=== PATIENT | male | born 1960 | race Caucasian/White ===

== ENCOUNTER 2022-07-24 14:34 | Inpatient (IN) | payer MEDICARE, OTHER ==
[~2022-07-24] VITALS: Ht 165.1 cm; Wt 63.5 kg
[2022-07-24] MEDS ORDERED: IV NS 0.9% 500 ML BAG IV ONE (15:00)
--- NOTE | 2022-07-24 15:09 | NUR ---
DEJA FROM [facility] FOR FAILURE TO THRIVE X 3 DAYS. AOX1. QUADRAPLEGIC. TRANSFERRED PT TO BED, CONNECTED PT TO MONITOR. VITAL SIGNS STABLE. AWAITING MD MONZON
--- NOTE | 2022-07-24 15:11 | NUR ---
IV SITE 20G LEFT FOREARM. BLOOD DRAWN AND SENT TO LAB.
--- NOTE | 2022-07-24 15:32 | NUR ---
URINE SAMPLE COLLECTED AND SENT TO LAB.
[2022-07-24 15:34] LABS: BASOPHILS % (AUTO) 0.4 % (0.0-2.0); EOSINOPHILS % (AUTO) 11.4 % (0.0-6.0); HEMATOCRIT 40 % (39-51); HEMOGLOBIN 13.7 g/dL (13.5-17.5); LYMPHOCYTES # (AUTO) 1.1 K/uL (0.8-4.8); LYMPHOCYTES % (AUTO) 20.6 % (20.0-44.0); MEAN CORPUSCULAR HGB CONC 34 g/dl (31.0-36.0); MEAN CORPUSCULAR VOLUME 85 fL (80-96); MONOCYTES # (AUTO) 0.3 K/uL (0.1-1.30); MONOCYTES % (AUTO) 5.5 % (2.0-12.0); NEUTROPHILS # (AUTO) 3.3 K/uL (1.8-8.9); NEUTROPHILS % (AUTO) 62.1 % (43.0-81.0); PLATELET COUNT (AUTO) 209 K/uL (150-450); RED BLOOD CELL COUNT(AUTO) 4.76 MIL/uL (4.5-6.0); WHITE BLOOD COUNT (AUTO) 5.2 K/uL (4.3-11.0)
[2022-07-24] MEDS ORDERED: ASPI-1169 PO (15:40)
[2022-07-24] MEDS ORDERED: ATOR10TA PO (15:40)
[2022-07-24] MEDS ORDERED: METF-440 PO (15:40)
[2022-07-24] MEDS ORDERED: ACET-868 PO (15:40)
[2022-07-24] MEDS ORDERED: BISA10SU11 RC (15:40)
[2022-07-24] MEDS ORDERED: SENN-261 PO (15:40)
[2022-07-24] MEDS ORDERED: MULT-24 PO (15:40)
[2022-07-24] MEDS ORDERED: CHOL100043 PO (15:40)
[2022-07-24] MEDS ORDERED: SODI1TAB66 PO (15:40)
[2022-07-24] MEDS ORDERED: MAGN400O6 PO (15:40)
[2022-07-24] MEDS ORDERED: NA P133E RC (15:40)
[2022-07-24] MEDS ORDERED: LISI10TA29 PO (15:40)
[2022-07-24] MEDS ORDERED: DOCU-141 PO (15:40)
[2022-07-24 15:57] LABS: CALCIUM, SERUM 9.6 mg/dL (8.5-10.1); CARBON DIOXIDE 27 mmol/L (21-32); CHLORIDE 100 mmol/L (98-107); CREATININE 0.8 mg/dL (0.6-1.3); GLUCOSE 99 mg/dL (74-106); POTASSIUM 4.2 mmol/L (3.5-5.1); SODIUM SERUM 134 mmol/L (136-145); UREA NITROGEN, BLOOD 12 mg/dL (7-18)
[2022-07-24 16:03] LABS: ALANINE AMINOTRANSFERASE 25 U/L (12-78); ALBUMIN 3.6 g/dL (3.4-5.0); ALKALINE PHOSPHATASE 86 U/L (46-116); ASPARTATE AMINOTRANSFERASE 14 U/L (15-37); BILIRUBIN,DIRECT 0.1 mg/dL (0.0-0.2); BILIRUBIN,TOTAL 0.2 mg/dL (0.2-1.0)
[2022-07-24] MEDS ORDERED: INSULIN REGULAR, HUMAN 100 UNIT/ML 3 ML VIAL SQ PRN (16:30)
[2022-07-24] MEDS ORDERED: DEXTROSE 50%-WATER 50 ML DISP.SYRIN IV PRN (16:30)
[2022-07-24] MEDS ORDERED: BISACODYL SUPP (10 MG) 10 MG/SUPP.RECT SUPP.RECT RC PRN (16:30)
[2022-07-24] MEDS ORDERED: NA PHOS,M-B/NA PHOS,DI-BA 1 EA ENEMA RC PRN (16:30)
[2022-07-24] MEDS ORDERED: ACETAMINOPHEN 325 MG TABLET PO PRN ×4 (16:30)
[2022-07-24] MEDS ORDERED: Z GUARD REMEDY 4 OZ OINT TP PRN (16:30)
[2022-07-24] MEDS ORDERED: MAG HYDROX/AL HYDROX/SIMETH 30 ML UDC PO PRN (16:30)
[2022-07-24] MEDS ORDERED: ONDANSETRON HCL/PF 4 MG/2 ML VIAL IVP PRN (16:30)
[2022-07-24] MEDS ORDERED: MAGNESIUM HYDROXIDE 30 ML UDC PO PRN ×2 (16:30)
[2022-07-24 17:08] LABS: BILIRUBIN,URINE NEGATIVE (NEGATIVE); COLOR,URINE YELLOW (YELLOW); LEUKOCYTE ESTERASE ,URINE NEGATIVE (NEGATIVE); NITRITE, URINE NEGATIVE (NEGATIVE); PROTEIN,URINE NEGATIVE (NEGATIVE); UGLUCOSE NEGATIVE (NEGATIVE); UROBILINOGEN,URINE 0.2 EU/dL (0.2)
--- NOTE | 2022-07-24 17:10 | NUR ---
COVID SWAB COLLECTED AND SENT TO LAB
--- NOTE | 2022-07-24 17:57 | NUR ---
MOVE SHEET SUBMITTED.
--- NOTE | 2022-07-24 17:58 | NUR ---
GOT BED 118-1 ADMITTING INFORMED.
--- NOTE | 2022-07-24 18:38 | NUR ---
REPORT GIVEN TO COLLEEN FLEMING.
--- NOTE | 2022-07-24 18:39 | NUR ---
RN NOTE RECEIVED REPORT FROM ANTHONY Anderson RN AT THIS TIME FROM ED. PATIENT WILL BE IN ROOM 118 BED 1. WILL ENDORSE CONTINUITY OF CARE TO HARDWARE TRAINER.
--- NOTE | 2022-07-24 18:50 | NUR ---
SADDLE STITCH OPERATOR NOTE TOOK VITALS AT THIS TIME: BP: 98/63 ON RA. RR:20. BREATHING ON ROOM AIR WITH O2 SAT OF 95%. ORAL TEMP 98.7 F. HR: 62. HOB ELEVATE. PATIENT UNDERSTANDS [place]. PATIENT IS A0X1, ABLE TO FOLLOW COMMANDS IN SW[place]ISH. ALL SAFETY MEASURE IN PLACE, SKIN IN TACT. WILL ENDORSE CONTINUITY OF CARE TO LINER HELPER.
--- NOTE | 2022-07-24 19:20 | NUR ---
RN NOTE RECEIVED PT IN BED, ALERT, AWAKE AND ORIENTED TO SELF ONLY. PT ABLE TO FOLLOW SIMPLE COMMANDS, ABLE TO UNDERSTAND SIMPLE [place]. DENIES PAIN OR DISCOMFORT AT THIS TIME. AFEBRILE. PT ON ROOM AIR, WELL SUSU. RESPIRATIONS EVEN AND UNLABORED, NO ACUTE RESP DISTRESS NOTED. PIV ON RFA #20G, CLEAN, DRY AND PATENT, FLUSHES WELL. HOB ELEVATED. SAFETY PRECAUTION IMPLEMENTED, CALL LIGHT WITHIN EASY REACH, BED LOCKED AND IN LOWEST POSITION. WILL CONTINUE POC.
[2022-07-24 20:00] VITALS: BP 104/68
[2022-07-24] MEDS: IV NS 0.9% 1,000 ML IV PRN (20:17)
[2022-07-24] MEDS: DOCUSATE SODIUM 100 MG CAPSULE PO SCH (21:31)
[2022-07-24] MEDS: SENNOSIDES 8.6 MG TABLET PO SCH (21:31)
[2022-07-24] MEDS: BLOOD SUGAR DIAGNOSTIC 1 EACH STRIP VI SCH (21:32)
[2022-07-24] MEDS: *INSULIN REGULAR(HUMULIN R)HUM 100 UNIT/ML VIAL SQ PRN (21:33)
[2022-07-25 04:00] VITALS: BP 133/80
--- NOTE | 2022-07-25 06:50 | NUR ---
RN NOTE PT IN STABLE CONDITION. NO SIGNIFICANT CHANGES NOTED. REMAINS ON ROOM AIR, O2 SAT 97%, NO SOB, NO ACUTE RESP DISTRESS. NO C/O PAIN/DISCOMFORT NOTED. PIV ACCESS ON LFA CURRENTLY INFUSING NS AT 75ML/HR ORDERED, WELL TOLERATED. ALL DUE MEDS GIVEN ORDERED. ALL NEEDS ANTICIPATED. KEPT PT CLEAN, DRY AND COMFORTABLE AT ALL TIMES. WILL ENDORSE TO AM SHIFT NURSE FOR NEPTALI.
[2022-07-25 07:11] LABS: BASOPHILS % (AUTO) 0.2 % (0.0-2.0); EOSINOPHILS % (AUTO) 12.2 % (0.0-6.0); HEMATOCRIT 39 % (39-51); HEMOGLOBIN 13.4 g/dL (13.5-17.5); LYMPHOCYTES # (AUTO) 1.2 K/uL (0.8-4.8); LYMPHOCYTES % (AUTO) 24.6 % (20.0-44.0); MEAN CORPUSCULAR HGB CONC 34 g/dl (31.0-36.0); MEAN CORPUSCULAR VOLUME 85 fL (80-96); MONOCYTES # (AUTO) 0.3 K/uL (0.1-1.30); MONOCYTES % (AUTO) 5.4 % (2.0-12.0); NEUTROPHILS # (AUTO) 2.8 K/uL (1.8-8.9); NEUTROPHILS % (AUTO) 57.6 % (43.0-81.0); PLATELET COUNT (AUTO) 169 K/uL (150-450); RED BLOOD CELL COUNT(AUTO) 4.63 MIL/uL (4.5-6.0); WHITE BLOOD COUNT (AUTO) 4.9 K/uL (4.3-11.0)
[2022-07-25 07:43] LABS: CALCIUM, SERUM 8.7 mg/dL (8.5-10.1); CREATININE 0.6 mg/dL (0.6-1.3); MAGNESIUM 1.9 mg/dL (1.8-2.4); PHOSPHORUS 3.1 mg/dL (2.5-4.9); POTASSIUM 3.8 mmol/L (3.5-5.1)
[2022-07-25 08:00] VITALS: BP 127/78
[2022-07-25] MEDS: BLOOD SUGAR DIAGNOSTIC 1 EACH STRIP VI SCH ×4 (08:05→22:29)
--- NOTE | 2022-07-25 08:10 | NUR ---
RN OPENING NOTE RECEIVED PT IN BED, ALERT, AWAKE AND ORIENTED TO SELF ONLY. PT ABLE TO FOLLOW SIMPLE COMMANDS, ABLE TO UNDERSTAND SIMPLE [place]. DENIES PAIN OR DISCOMFORT AT THIS TIME. PT ON ROOM AIR, WELL SUSU. RESPIRATIONS EVEN AND UNLABORED, NO ACUTE RESP DISTRESS NOTED. PIV ON RFA #20G, CLEAN, DRY AND PATENT, FLUSHES WELL. HOB ELEVATED. SAFETY PRECAUTION IMPLEMENTED, CALL LIGHT WITHIN EASY REACH, BED LOCKED AND IN LOWEST POSITION.BED ALARM ON
[2022-07-25] MEDS: DOCUSATE SODIUM 100 MG CAPSULE PO SCH ×2 (08:24→16:28)
[2022-07-25] MEDS: ASPIRIN 81 MG TAB.CHEW PO SCH (08:24)
[2022-07-25] MEDS: SODIUM CHLORIDE 1000 MG TABLET PO SCH (08:24)
[2022-07-25] MEDS: ATORVASTATIN 10 MG TABLET PO SCH (08:24)
[2022-07-25] MEDS: LISINOPRIL (20MG) 20 MG TABLET PO SCH (08:39)
[2022-07-25] MEDS ORDERED: LISINOPRIL (10MG) 10 MG TABLET PO SCH (09:00)
[2022-07-25] MEDS: IV NS 0.9% 1,000 ML IV PRN ×2 (09:54→23:21)
[2022-07-25 12:00] VITALS: BP 118/83
--- NOTE | 2022-07-25 19:16 | NUR ---
118-1 RN CLOSING NOTE PT IN BED, ALERT, AWAKE AND ORIENTED TO SELF ONLY. PT ABLE TO FOLLOW SIMPLE COMMANDS, ABLE TO UNDERSTAND SIMPLE DANISH. NODS HEAD WHEN ASK SIMPLE QUESTIONS. DENIES PAIN OR DISCOMFORT AT THIS TIME. PT ON ROOM AIR, WELL SUSU AT 99%. RESPIRATIONS EVEN AND UNLABORED, NO ACUTE RESP DISTRESS NOTED. PIV ON RFA #20G, CLEAN, DRY AND PATENT, FLUSHES WELL. HOB ELEVATED.ALL SAFETY PRECAUTION IMPLEMENTED, CALL LIGHT WITHIN EASY REACH, BED LOCKED AND IN LOWEST POSITION. BED ALARM ON. ENDORSED TO BRIDGE EXPERT RN FOR CONTUTIY OF CARE
--- NOTE | 2022-07-25 19:20 | NUR ---
RN NOTE RECEIVED PT IN BED, ALERT, AWAKE AND ORIENTED TO SELF ONLY. PT ABLE TO FOLLOW SIMPLE COMMANDS, ABLE TO UNDERSTAND SIMPLE [place]. DENIES PAIN OR DISCOMFORT AT THIS TIME. AFEBRILE. PT ON ROOM AIR, WELL SUSU. RESPIRATIONS EVEN AND UNLABORED, NO ACUTE RESP DISTRESS NOTED. PIV ON RFA #20G INFUSING NS AT 75ML/HR, WELL SUSU, CLEAN, DRY AND PATENT. HOB ELEVATED. SAFETY PRECAUTION IMPLEMENTED, CALL LIGHT WITHIN EASY REACH, BED LOCKED AND IN LOWEST POSITION. WILL CONTINUE POC.
[2022-07-25 20:00] VITALS: BP 140/76
[2022-07-25] MEDS: SENNOSIDES 8.6 MG TABLET PO SCH (21:23)
[2022-07-25] MEDS: *INSULIN REGULAR(HUMULIN R)HUM 100 UNIT/ML VIAL SQ PRN (22:29)
[2022-07-26 04:00] VITALS: BP 128/62
--- NOTE | 2022-07-26 07:00 | NUR ---
RN NOTE PT IN STABLE CONDITION. NO SIGNIFICANT CHANGES NOTED. REMAINS ON ROOM AIR, O2 SAT 99%, NO SOB, NO ACUTE RESP DISTRESS. NO C/O PAIN/DISCOMFORT NOTED. PIV ACCESS ON LFA CURRENTLY INFUSING NS AT 75ML/HR ORDERED, WELL TOLERATED. ALL DUE MEDS GIVEN ORDERED. ALL NEEDS ANTICIPATED. KEPT PT CLEAN, DRY AND COMFORTABLE AT ALL TIMES. HAND OFF REPORT GIVEN TO KAYLEN FLEMING.
--- NOTE | 2022-07-26 07:12 | NUR ---
TRAFFIC EXPERT OPENING NOTE PT IN BED, ALERT, AWAKE AND ORIENTED TO SELF ONLY. PT ABLE TO FOLLOW SIMPLE COMMANDS, ABLE TO UNDERSTAND SIMPLE G[place]BI[place]. NODS HEAD WHEN ASK SIMPLE QUESTIONS. DENIES PAIN OR DISCOMFORT AT THIS TIME. PT ON ROOM AIR, WELL SUSU AT 99%. RESPIRATIONS EVEN AND UNLABORED, NO ACUTE RESP DISTRESS NOTED AT THIS TIME. IV ON RFA #20G, CLEAN, DRY AND PATENT, FLUSHES WELL. HOB ELEVATED.ALL SAFETY PRECAUTION IMPLEMENTED, CALL LIGHT WITHIN EASY REACH, BED LOCKED AND IN LOWEST POSITION. BED ALARM ON. SIDE RAILS UP X2
[2022-07-26] MEDS: BLOOD SUGAR DIAGNOSTIC 1 EACH STRIP VI SCH ×4 (07:41→21:46)
[2022-07-26 08:00] VITALS: BP 124/93
[2022-07-26] MEDS: ATORVASTATIN 10 MG TABLET PO SCH (08:13)
[2022-07-26] MEDS: ASPIRIN 81 MG TAB.CHEW PO SCH (08:13)
[2022-07-26] MEDS: DOCUSATE SODIUM 100 MG CAPSULE PO SCH ×2 (08:13→16:27)
[2022-07-26] MEDS: SODIUM CHLORIDE 1000 MG TABLET PO SCH (08:14)
[2022-07-26] MEDS: LISINOPRIL (20MG) 20 MG TABLET PO SCH (08:14)
[2022-07-26 16:00] VITALS: BP 128/60
--- NOTE | 2022-07-26 19:18 | NUR ---
RN CLOSING NOTE PT IN BED, ALERT, AWAKE AND ORIENTED TO SELF ONLY. PT ABLE TO FOLLOW SIMPLE COMMANDS, ABLE TO UNDERSTAND SIMPLE [place]. NODS HEAD WHEN ASK SIMPLE QUESTIONS. DENIES PAIN OR DISCOMFORT AT THIS TIME. PT ON ROOM AIR, WELL SUSU AT 99%. RESPIRATIONS EVEN AND UNLABORED, NO ACUTE RESP DISTRESS NOTED. PIV ON RFA #20G, CLEAN, DRY AND PATENT, FLUSHES WELL. HOB ELEVATED.ALL SAFETY PRECAUTION IMPLEMENTED, CALL LIGHT WITHIN EASY REACH, BED LOCKED AND IN LOWEST POSITION. BED ALARM ON. ENDORSED TO GREEN END WORKER RN FOR CONTUTIY OF CARE
--- NOTE | 2022-07-26 19:30 | NUR ---
MS RN OPENING NOTE RECEIVED PATIENT FROM AM NURSE; PATIENT IS A/O X 1, ABLE TO ANSWER WITH NODDING; STABLE ON ROOM AIR, BREATHING EVENLY AND NO S/S OF DISTRESS NOTED; WITH IV ACCESS AT RIGHT FA G# 22, SALINE LOCK; HOB ELEVATED; SAFETY MEASURES IMPLEMENTED, BED IN LOW AND LOCKED POSITION, SIDE RAILS UP X3, CALL LIGHT AND TABLE WITHIN REACH, BED ALARM ON; WILL CONTINUE TO MONITOR THROUGHOUT SHIFT
[2022-07-26 20:00] VITALS: BP 123/82
[2022-07-26] MEDS: SENNOSIDES 8.6 MG TABLET PO SCH (21:23)
[2022-07-26] MEDS: *INSULIN REGULAR(HUMULIN R)HUM 100 UNIT/ML VIAL SQ PRN (21:46)
[2022-07-27 04:00] VITALS: BP 136/85
--- NOTE | 2022-07-27 06:53 | NUR ---
MS RN CLOSING NOTE PATIENT IS A/O X 1, ABLE TO ANSWER QUESTIONS WITH NODDING; STABLE ON ROOM AIR, BREATHING EVENLY AND NO S/S OF DISTRESS NOTED; WITH IV ACCESS AT RIGHT FA G# 22, SALINE LOCK INTACT AND PATENT; HOB ELEVATED; ADMINISTERED MEDICATIONS PRESCRIBED; PATIENT'S NEEDS ATTENDED; MONITORED PATIENT ACCORDINGLY; SAFETY MEASURES IMPLEMENTED, BED IN LOW AND LOCKED POSITION, SIDE RAILS UP X3, CALL LIGHT AND TABLE WITHIN REACH, BED ALARM ON; WILL ENDORSE TO AM NURSE FOR NEPTALI.
--- NOTE | 2022-07-27 07:10 | NUR ---
RN OPENING NOTE RECEIVED PATIENT ASLEEP, STABLE ON ROOM AIR, BREATHING EVENLY AND NO S/S OF DISTRESS NOTED; IV ACCESS AT RIGHT FA G# 22, SALINE LOCK; HOB ELEVATED; SAFETY MEASURES IMPLEMENTED, BED IN LOW AND LOCKED POSITION, SIDE RAILS UP X3, CALL LIGHT AND TABLE WITHIN REACH, BED ALARM ON; WILL CONTINUE TO MONITOR.
[2022-07-27] MEDS: BLOOD SUGAR DIAGNOSTIC 1 EACH STRIP VI SCH ×2 (08:01→11:38)
[2022-07-27] MEDS: ASPIRIN 81 MG TAB.CHEW PO SCH (08:53)
[2022-07-27] MEDS: LISINOPRIL (20MG) 20 MG TABLET PO SCH (08:54)
[2022-07-27] MEDS: DOCUSATE SODIUM 100 MG CAPSULE PO SCH (08:54)
[2022-07-27] MEDS: SODIUM CHLORIDE 1000 MG TABLET PO SCH (08:54)
[2022-07-27] MEDS: ATORVASTATIN 10 MG TABLET PO SCH (08:54)
[2022-07-27 12:00] VITALS: BP 147/78
--- NOTE | 2022-07-27 14:00 | NUR ---
PATIENT D/C, TRANSFERRED BACK TO [facility] BY REHABIL[facility]ATION TECHNICIAN TRANSPORTATION. REPORT OVER THE PHONE GIVEN TO NURSE MATTHEW.
== END 2022-07-27 14:05 | DRG 640 ==
LOC: ER 14:52 → TELE1 18:22 → MEDSG1 07-25 05:52
PROVIDERS: ADMIT Internal Medicine; ATTEND Internal Medicine
DX: E86.0 Dehydration (principal); G93.41 Metabolic encephalopathy; E22.2 Syndrome of inappropriate secretion of antidiuretic hormone; E86.1 Hypovolemia; E11.9 Type 2 diabetes mellitus without complications; E78.5 Hyperlipidemia, unspecified; I10 Essential (primary) hypertension; F03.90 Unspecified dementia, unspecified severity, without behavioral disturbance, psychotic disturbance, mood disturbance, and anxiety; Z79.84 Long term (current) use of oral hypoglycemic drugs; Z79.82 Long term (current) use of aspirin; Z79.899 Other long term (current) drug therapy; I69.320 Aphasia following cerebral infarction; R26.9 Unspecified abnormalities of gait and mobility
CPT/HCPCS: 36415; 71045-TC; 80048-TC; 80076-TC; 82962-TC; 83605-TC; 83735-TC; 84100-TC; 84484-TC; 85025-TC; 87040-TC; 87081-TC; A4223; C9803; G0378; J1815; J7030; J7040

== ENCOUNTER 2023-04-02 18:18 | Inpatient (IN) | payer MEDICARE, OTHER ==
[~2023-04-02] VITALS: Ht 157.5 cm; Wt 59.9 kg
[~2023-04-02 18:18] MED LIST: ACET-868 PO; ASPI-1169 PO; ATOR10TA PO; BISA10SU11 RC; CHOL100043 PO; DOCU-141 PO; LISI10TA29 PO; MAGN400O6 PO; METF-440 PO; MULT-24 PO; NA P133E RC; SENN-261 PO; SODI1TAB66 PO
[2023-04-02 19:00] LABS: BASOPHILS % (AUTO) 0.3 % (0.0-2.0); EOSINOPHILS # (AUTO) 0.5 K/uL (0.0-0.7); EOSINOPHILS % (AUTO) 10.4 % (0.0-6.0); HEMATOCRIT 38 % (39-51); HEMOGLOBIN 12.8 g/dL (13.5-17.5); LYMPHOCYTES # (AUTO) 1.3 K/uL (0.8-4.8); LYMPHOCYTES % (AUTO) 26.5 % (20.0-44.0); MEAN CORPUSCULAR HEMOGLOBIN 29 PG (26.0-33.0); MEAN CORPUSCULAR HGB CONC 34 g/dl (31.0-36.0); MEAN CORPUSCULAR VOLUME 86 fL (80-96); MONOCYTES # (AUTO) 0.3 K/uL (0.1-1.30); MONOCYTES % (AUTO) 6.4 % (2.0-12.0); NEUTROPHILS # (AUTO) 2.7 K/uL (1.8-8.9); NEUTROPHILS % (AUTO) 56.4 % (43.0-81.0); PLATELET COUNT (AUTO) 217 K/uL (150-450); RED BLOOD CELL COUNT(AUTO) 4.45 MIL/uL (4.5-6.0); RED CELL DISTRIBUTION WIDTH 14.1 % (11.5-15.0); WHITE BLOOD COUNT (AUTO) 4.8 K/uL (4.3-11.0)
[2023-04-02 19:18] LABS: ACETAMINOPHEN < 10 ug/ml (10-30); ALANINE AMINOTRANSFERASE 32 U/L (12-78); ALBUMIN 3.3 g/dL (3.4-5.0); ALKALINE PHOSPHATASE 74 U/L (46-116); ASPARTATE AMINOTRANSFERASE 14 U/L (15-37); BILIRUBIN,DIRECT 0.1 mg/dL (0.0-0.2); BILIRUBIN,TOTAL 0.3 mg/dL (0.2-1.0); CALCIUM, SERUM 9.2 mg/dL (8.5-10.1); CARBON DIOXIDE 26 mmol/L (21-32); CHLORIDE 97 mmol/L (98-107); CREATININE 0.8 mg/dL (0.6-1.3); GLUCOSE 95 mg/dL (74-106); POTASSIUM 4.1 mmol/L (3.5-5.1); SODIUM SERUM 127 mmol/L (136-145); UREA NITROGEN, BLOOD 14 mg/dL (7-18)
[2023-04-02 19:19] LABS: SALICYLATE 0.4 mg/dL (2.8-20.0)
[2023-04-02 19:20] LABS: ALCOHOL, BLOOD < 3 mg/dL (0-10)
[2023-04-02 20:28] LABS: APPEARANCE,URINE CLEAR (CLEAR); BILIRUBIN,URINE NEGATIVE (NEGATIVE); BLOOD, URINE TRACE-INTA Ery/uL (NEGATIVE); COLOR,URINE YELLOW (YELLOW); KETONES,URINE NEGATIVE (NEGATIVE); LEUKOCYTE ESTERASE ,URINE NEGATIVE (NEGATIVE); NITRITE, URINE NEGATIVE (NEGATIVE); PROTEIN,URINE NEGATIVE (NEGATIVE); UGLUCOSE NEGATIVE (NEGATIVE); UROBILINOGEN,URINE 0.2 EU/dL (0.2)
[2023-04-02 20:39] LABS: AMPHETAMINE, URINE NEGATIVE (NEGATIVE); BARBITURATE, URINE NEGATIVE (NEGATIVE); BENZODIAZEPINE, URINE NEGATIVE (NEGATIVE); CANNABINOID, URINE NEGATIVE (NEGATIVE); COCCAINE, URINE NEGATIVE (NEGATIVE); OPIATE, URINE NEGATIVE (NEGATIVE); PHENCYCLIDINE SCREEN,URINE NEGATIVE (NEGATIVE)
[2023-04-02 20:53] LABS: ADD URINE CULTURE NO; BACTERIA,URINE 1+ /HPF (None Seen); WBC,URINE NONE SEEN /HPF (0-3)
[2023-04-02] MEDS ORDERED: DEXTROSE 50%-WATER 50 ML DISP.SYRIN IV PRN (23:30)
[2023-04-02] MEDS ORDERED: ACETAMINOPHEN 325 MG TABLET PO PRN (23:30)
[2023-04-02] MEDS ORDERED: ONDANSETRON HCL/PF 4 MG/2 ML VIAL IVP PRN (23:30)
[2023-04-02] MEDS ORDERED: IV NS 0.9% 1,000 ML IV PRN (23:30)
[2023-04-03] MEDS ORDERED: CEFTRIAXONE 1GM BAG (ER ONLY) 50 ML IV ONE (04:11)
[2023-04-03] MEDS ORDERED: ENOXAPARIN SODIUM 40 MG/0.4 ML DISP.SYRIN SQ ONE ×2 (04:11→21:37)
[2023-04-03] MEDS: ENOXAPARIN SODIUM 40 MG/0.4 ML DISP.SYRIN SQ SCH ×2 (04:21→21:39)
[2023-04-03] MEDS: CEFTRIAXONE 1 G in IV D5W 50 ML IV SCH ×2 (04:22→21:55)
[2023-04-03] MEDS: BLOOD SUGAR DIAGNOSTIC 1 EACH STRIP IN SCH ×4 (07:30→21:55)
[2023-04-03 07:58] LABS: BASOPHILS % (AUTO) 0.3 % (0.0-2.0); EOSINOPHILS # (AUTO) 0.4 K/uL (0.0-0.7); EOSINOPHILS % (AUTO) 8.9 % (0.0-6.0); HEMATOCRIT 40 % (39-51); HEMOGLOBIN 13.5 g/dL (13.5-17.5); LYMPHOCYTES # (AUTO) 1.2 K/uL (0.8-4.8); MEAN CORPUSCULAR HEMOGLOBIN 29 PG (26.0-33.0); MEAN CORPUSCULAR HGB CONC 34 g/dl (31.0-36.0); MEAN CORPUSCULAR VOLUME 85 fL (80-96); MONOCYTES # (AUTO) 0.3 K/uL (0.1-1.30); MONOCYTES % (AUTO) 6.4 % (2.0-12.0); NEUTROPHILS # (AUTO) 2.9 K/uL (1.8-8.9); NEUTROPHILS % (AUTO) 60.4 % (43.0-81.0); PLATELET COUNT (AUTO) 197 K/uL (150-450); RED BLOOD CELL COUNT(AUTO) 4.66 MIL/uL (4.5-6.0); RED CELL DISTRIBUTION WIDTH 14.1 % (11.5-15.0); WHITE BLOOD COUNT (AUTO) 4.8 K/uL (4.3-11.0)
[2023-04-03 08:34] LABS: CALCIUM, SERUM 9.2 mg/dL (8.5-10.1); CREATININE 0.6 mg/dL (0.6-1.3); MAGNESIUM 1.9 mg/dL (1.8-2.4); PHOSPHORUS 3.5 mg/dL (2.5-4.9); POTASSIUM 3.8 mmol/L (3.5-5.1)
[2023-04-03] MEDS ORDERED: MULTIVITAMINS,THERAGRAN 1 UDTAB TABLET ONE (09:20)
[2023-04-03] MEDS ORDERED: LISINOPRIL (20MG) 20 MG TABLET ONE (09:20)
[2023-04-03] MEDS: ASPIRIN 81 MG TAB.CHEW PO SCH (09:20)
[2023-04-03] MEDS ORDERED: DOCUSATE SODIUM 100 MG CAPSULE PO ONE ×2 (09:20→17:15)
[2023-04-03] MEDS ORDERED: ASPIRIN 81 MG TAB.CHEW ONE (09:20)
[2023-04-03] MEDS: DOCUSATE SODIUM 100 MG CAPSULE PO SCH ×2 (09:21→17:15)
[2023-04-03] MEDS: MULTIVITAMINS,THERAGRAN 1 UDTAB TABLET PO SCH (09:22)
[2023-04-03] MEDS: LISINOPRIL (10MG) 10 MG TABLET PO SCH (09:22)
[2023-04-03] MEDS: INSULIN REGULAR, HUMAN 100 UNIT/ML 3 ML VIAL SQ PRN (11:38)
[2023-04-03 13:57] LABS: CALCIUM, SERUM 8.9 mg/dL (8.5-10.1); CREATININE 0.7 mg/dL (0.6-1.3); MAGNESIUM 1.8 mg/dL (1.8-2.4); PHOSPHORUS 3.6 mg/dL (2.5-4.9); POTASSIUM 4.1 mmol/L (3.5-5.1)
[2023-04-03 14:08] LABS: THYROID STIMULATING HORMONE 2.056 uIU/mL (0.358-3.74); URIC ACID 4.2 mg/dL (2.6-7.2)
[2023-04-03 17:33] LABS: URINE SODIUM, RANDOM 106 mmol/l (40-220)
[2023-04-03] MEDS ORDERED: SENNOSIDES 8.6 MG TABLET ONE (21:37)
[2023-04-03] MEDS ORDERED: ATORVASTATIN 10 MG TABLET ONE (21:38)
[2023-04-03] MEDS: ATORVASTATIN 10 MG TABLET PO SCH (21:56)
[2023-04-03] MEDS: SENNOSIDES 8.6 MG TABLET PO SCH (21:56)
[2023-04-04 01:45] VITALS: BP 127/77; TEMP 98.2; O2SAT 97
[2023-04-04 02:24] VITALS: BP 127/77; TEMP 98.2; O2SAT 97
[2023-04-04 07:15] LABS: CALCIUM, SERUM 9.3 mg/dL (8.5-10.1); CREATININE 0.6 mg/dL (0.6-1.3); POTASSIUM 3.9 mmol/L (3.5-5.1)
[2023-04-04 08:00] VITALS: BP 127/77; TEMP 97.9; O2SAT 95
[2023-04-04] MEDS: BLOOD SUGAR DIAGNOSTIC 1 EACH STRIP IN SCH ×4 (08:42→21:45)
[2023-04-04] MEDS: ASPIRIN 81 MG TAB.CHEW PO SCH (09:02)
[2023-04-04] MEDS: LISINOPRIL (10MG) 10 MG TABLET PO SCH (09:03)
[2023-04-04] MEDS: MULTIVITAMINS,THERAGRAN 1 UDTAB TABLET PO SCH (09:03)
[2023-04-04] MEDS: DOCUSATE SODIUM 100 MG CAPSULE PO SCH ×2 (09:04→16:46)
[2023-04-04 16:00] VITALS: BP 123/80; TEMP 98.6; O2SAT 96
[2023-04-04 20:00] VITALS: BP 142/84; TEMP 98.3; O2SAT 98
[2023-04-04 20:39] LABS: OSMOLALITY,URINE 564 mOS/kg (340-1090)
[2023-04-04] MEDS: SENNOSIDES 8.6 MG TABLET PO SCH (21:46)
[2023-04-04] MEDS: ATORVASTATIN 10 MG TABLET PO SCH (21:46)
[2023-04-04] MEDS: ENOXAPARIN SODIUM 40 MG/0.4 ML DISP.SYRIN SQ SCH (21:48)
[2023-04-04] MEDS: CEFTRIAXONE 1 G in IV D5W 50 ML IV SCH (22:09)
[2023-04-05] MEDS: BLOOD SUGAR DIAGNOSTIC 1 EACH STRIP IN SCH ×4 (06:30→22:02)
[2023-04-05 07:30] VITALS: BP 124/74; TEMP 98.2; O2SAT 99
[2023-04-05 08:11] LABS: CREATININE 0.7 mg/dL (0.6-1.3); POTASSIUM 3.9 mmol/L (3.5-5.1)
[2023-04-05] MEDS: DOCUSATE SODIUM 100 MG CAPSULE PO SCH ×2 (09:02→17:17)
[2023-04-05] MEDS: MULTIVITAMINS,THERAGRAN 1 UDTAB TABLET PO SCH (09:02)
[2023-04-05] MEDS: ASPIRIN 81 MG TAB.CHEW PO SCH (09:03)
[2023-04-05] MEDS: LISINOPRIL (10MG) 10 MG TABLET PO SCH (09:03)
[2023-04-05 16:00] VITALS: BP 125/70; TEMP 97.7; O2SAT 96
[2023-04-05] MEDS: CEFTRIAXONE 1 G in IV D5W 50 ML IV SCH (21:50)
[2023-04-05] MEDS: SENNOSIDES 8.6 MG TABLET PO SCH (21:51)
[2023-04-05] MEDS: ATORVASTATIN 10 MG TABLET PO SCH (21:51)
[2023-04-05] MEDS: INSULIN REGULAR, HUMAN 100 UNIT/ML 3 ML VIAL SQ PRN (22:03)
[2023-04-05] MEDS ORDERED: ENOXAPARIN SODIUM 40 MG/0.4 ML DISP.SYRIN SQ ONE (22:26)
[2023-04-05] MEDS: ENOXAPARIN SODIUM 40 MG/0.4 ML DISP.SYRIN SQ SCH (22:33)
[2023-04-06] MEDS: BLOOD SUGAR DIAGNOSTIC 1 EACH STRIP IN SCH ×4 (06:43→21:30)
[2023-04-06] MEDS: INSULIN REGULAR, HUMAN 100 UNIT/ML 3 ML VIAL SQ PRN (06:44)
[2023-04-06 06:52] LABS: CALCIUM, SERUM 9.2 mg/dL (8.5-10.1); CREATININE 0.7 mg/dL (0.6-1.3); POTASSIUM 3.8 mmol/L (3.5-5.1)
[2023-04-06 08:00] VITALS: BP 131/79; TEMP 97.7; O2SAT 98
[2023-04-06] MEDS: DOCUSATE SODIUM 100 MG CAPSULE PO SCH ×2 (08:36→17:15)
[2023-04-06] MEDS: ASPIRIN 81 MG TAB.CHEW PO SCH (08:36)
[2023-04-06] MEDS: MULTIVITAMINS,THERAGRAN 1 UDTAB TABLET PO SCH (08:36)
[2023-04-06] MEDS: LISINOPRIL (10MG) 10 MG TABLET PO SCH (08:37)
[2023-04-06 16:00] VITALS: BP 112/73; TEMP 99.3; O2SAT 94
[2023-04-06 20:00] VITALS: BP 113/87; TEMP 97.9; O2SAT 96
[2023-04-06] MEDS: ATORVASTATIN 10 MG TABLET PO SCH (21:11)
[2023-04-06] MEDS: SENNOSIDES 8.6 MG TABLET PO SCH (21:11)
[2023-04-06] MEDS: ENOXAPARIN SODIUM 40 MG/0.4 ML DISP.SYRIN SQ SCH (21:13)
[2023-04-06] MEDS: CEFTRIAXONE 1 G in IV D5W 50 ML IV SCH (21:19)
[2023-04-06 22:25] VITALS: BP 113/87; TEMP 97.9; O2SAT 96
[2023-04-07] MEDS: BLOOD SUGAR DIAGNOSTIC 1 EACH STRIP IN SCH ×2 (06:31→11:14)
[2023-04-07 07:13] LABS: CALCIUM, SERUM 8.9 mg/dL (8.5-10.1); CREATININE 0.6 mg/dL (0.6-1.3); POTASSIUM 3.8 mmol/L (3.5-5.1)
[2023-04-07 07:19] LABS: BASOPHILS % (AUTO) 0.3 % (0.0-2.0); EOSINOPHILS # (AUTO) 0.5 K/uL (0.0-0.7); EOSINOPHILS % (AUTO) 7.2 % (0.0-6.0); HEMATOCRIT 39 % (39-51); HEMOGLOBIN 13.1 g/dL (13.5-17.5); LYMPHOCYTES # (AUTO) 1.1 K/uL (0.8-4.8); LYMPHOCYTES % (AUTO) 17.3 % (20.0-44.0); MEAN CORPUSCULAR HEMOGLOBIN 29 PG (26.0-33.0); MEAN CORPUSCULAR HGB CONC 34 g/dl (31.0-36.0); MEAN CORPUSCULAR VOLUME 85 fL (80-96); MONOCYTES # (AUTO) 0.4 K/uL (0.1-1.30); MONOCYTES % (AUTO) 5.9 % (2.0-12.0); NEUTROPHILS # (AUTO) 4.4 K/uL (1.8-8.9); NEUTROPHILS % (AUTO) 69.3 % (43.0-81.0); PLATELET COUNT (AUTO) 208 K/uL (150-450); RED BLOOD CELL COUNT(AUTO) 4.55 MIL/uL (4.5-6.0); RED CELL DISTRIBUTION WIDTH 14.5 % (11.5-15.0); WHITE BLOOD COUNT (AUTO) 6.4 K/uL (4.3-11.0)
[2023-04-07 07:30] VITALS: BP 125/89; TEMP 98.2; O2SAT 99
[2023-04-07 09:14] VITALS: BP 125/89
[2023-04-07] MEDS: ASPIRIN 81 MG TAB.CHEW PO SCH (09:14)
[2023-04-07] MEDS: DOCUSATE SODIUM 100 MG CAPSULE PO SCH (09:14)
[2023-04-07] MEDS: MULTIVITAMINS,THERAGRAN 1 UDTAB TABLET PO SCH (09:14)
[2023-04-07] MEDS: LISINOPRIL (10MG) 10 MG TABLET PO SCH (09:14)
[2023-04-07] MEDS: INSULIN REGULAR, HUMAN 100 UNIT/ML 3 ML VIAL SQ PRN (11:15)
== END 2023-04-07 11:45 | DRG 643 ==
LOC: ER 18:18 → TRANSITION 04-03 01:45 → MED 04-04 00:31
PROVIDERS: ADMIT Nurse Practitioner Acute Care; ATTEND Nurse Practitioner Acute Care
DX: E22.2 Syndrome of inappropriate secretion of antidiuretic hormone (principal); G93.41 Metabolic encephalopathy; N39.0 Urinary tract infection, site not specified; E86.9 Volume depletion, unspecified; R62.7 Adult failure to thrive; F01.50 Vascular dementia, unspecified severity, without behavioral disturbance, psychotic disturbance, mood disturbance, and anxiety; I10 Essential (primary) hypertension; E78.5 Hyperlipidemia, unspecified; E11.9 Type 2 diabetes mellitus without complications; Z79.84 Long term (current) use of oral hypoglycemic drugs; Z79.82 Long term (current) use of aspirin; Z79.899 Other long term (current) drug therapy; B96.89 Other specified bacterial agents as the cause of diseases classified elsewhere; E86.0 Dehydration; D64.9 Anemia, unspecified; I69.320 Aphasia following cerebral infarction; N32.9 Bladder disorder, unspecified; N20.0 Calculus of kidney; Z79.4 Long term (current) use of insulin
CPT/HCPCS: 36415; 71045-TC; 71250-TC; 80048-TC; 80061-TC; 80076-TC; 81001; 82533; 82962-TC; 83735-TC; 83935-TC; 84100-TC; 84300-TC; 84443-TC; 84484-TC; 84550-TC; 85025-TC; 87081-TC; 92526; 92611-TC; 97112-TC; 97116-TC; 97530-TC; A4223; C9803; G0378; G0480; J0696; J1650; J1815; J2405; J7030; J7060

== ENCOUNTER 2023-11-10 20:48 | Inpatient (IN) | payer MEDICARE, OTHER ==
[~2023-11-10] VITALS: Ht 160 cm; Wt 63.5 kg
[~2023-11-10 20:48] MED LIST changes: -CHOL100043 PO
[2023-11-10 21:19] LABS: BASOPHILS % (AUTO) 0.5 % (0.0-2.0); EOSINOPHILS # (AUTO) 0.6 K/uL (0.0-0.7); EOSINOPHILS % (AUTO) 13.5 % (0.0-6.0); HEMATOCRIT 39 % (39-51); HEMOGLOBIN 12.8 g/dL (13.5-17.5); LYMPHOCYTES # (AUTO) 1.2 K/uL (0.8-4.8); LYMPHOCYTES % (AUTO) 24.7 % (20.0-44.0); MEAN CORPUSCULAR HEMOGLOBIN 29 PG (26.0-33.0); MEAN CORPUSCULAR HGB CONC 33 g/dl (31.0-36.0); MEAN CORPUSCULAR VOLUME 86 fL (80-96); MONOCYTES # (AUTO) 0.3 K/uL (0.1-1.30); MONOCYTES % (AUTO) 6.6 % (2.0-12.0); NEUTROPHILS # (AUTO) 2.6 K/uL (1.8-8.9); NEUTROPHILS % (AUTO) 54.7 % (43.0-81.0); PLATELET COUNT (AUTO) 190 K/uL (150-450); RED BLOOD CELL COUNT(AUTO) 4.47 MIL/uL (4.5-6.0); RED CELL DISTRIBUTION WIDTH 13.9 % (11.5-15.0); WHITE BLOOD COUNT (AUTO) 4.8 K/uL (4.3-11.0)
[2023-11-10 21:30] LABS: CALCIUM, SERUM 9.1 mg/dL (8.5-10.1); CARBON DIOXIDE 27 mmol/L (21-32); CHLORIDE 98 mmol/L (98-107); CREATININE 0.7 mg/dL (0.6-1.3); GLUCOSE 110 mg/dL (74-106); POTASSIUM 4.4 mmol/L (3.5-5.1); SODIUM SERUM 128 mmol/L (136-145); UREA NITROGEN, BLOOD 10 mg/dL (7-18)
[2023-11-10 21:31] LABS: INR 1.01 (0.91-1.10); PARTIAL THROMBOPLASTIN TIME 24.9 SEC (24.3-34.3); PROTHROMBIN TIME 10.4 SECS (9.2-11.1)
[2023-11-10 21:35] LABS: ALANINE AMINOTRANSFERASE 26 U/L (12-78); ALBUMIN 3.3 g/dL (3.4-5.0); ALKALINE PHOSPHATASE 83 U/L (46-116); ASPARTATE AMINOTRANSFERASE 13 U/L (15-37); BILIRUBIN,DIRECT 0.1 mg/dL (0.0-0.2); BILIRUBIN,TOTAL 0.3 mg/dL (0.2-1.0); LIPASE 26 U/L (16-77); TOTAL PROTEIN, SERUM 6.7 g/dL (6.4-8.2)
[2023-11-10 23:02] LABS: APPEARANCE,URINE CLEAR (CLEAR); BILIRUBIN,URINE NEGATIVE (NEGATIVE); BLOOD, URINE NEGATIVE Ery/uL (NEGATIVE); COLOR,URINE YELLOW (YELLOW); KETONES,URINE NEGATIVE (NEGATIVE); LEUKOCYTE ESTERASE ,URINE NEGATIVE (NEGATIVE); NITRITE, URINE NEGATIVE (NEGATIVE); PROTEIN,URINE NEGATIVE (NEGATIVE); UGLUCOSE NEGATIVE (NEGATIVE); UROBILINOGEN,URINE 0.2 EU/dL (0.2)
[2023-11-10] MEDS ORDERED: MAGNESIUM HYDROXIDE 30 ML UDC PO PRN (23:30)
[2023-11-10] MEDS ORDERED: ACETAMINOPHEN 325 MG TABLET PO PRN (23:30)
[2023-11-10] MEDS ORDERED: hydrALAZINE HCL IV 20 MG VIAL IV PRN (23:30)
[2023-11-10] MEDS ORDERED: MORPHINE SULFATE INJ 2 MG/ML DISP.SYRIN IV PRN (23:30)
[2023-11-10] MEDS ORDERED: DEXTROSE 50%-WATER 50 ML DISP.SYRIN IV PRN (23:30)
[2023-11-10] MEDS ORDERED: ONDANSETRON HCL/PF 4 MG/2 ML VIAL IVP PRN (23:30)
[2023-11-11 00:40] VITALS: BP 132/76; TEMP 97.7; O2SAT 98
[2023-11-11] MEDS: IV NS 0.9% 1,000 ML IV SCH (01:06)
[2023-11-11] MEDS: BLOOD SUGAR DIAGNOSTIC 1 EACH STRIP IN SCH (06:40)
[2023-11-11 06:44] LABS: BASOPHILS % (AUTO) 0.2 % (0.0-2.0); EOSINOPHILS # (AUTO) 0.6 K/uL (0.0-0.7); EOSINOPHILS % (AUTO) 11.2 % (0.0-6.0); HEMATOCRIT 37 % (39-51); HEMOGLOBIN 12.8 g/dL (13.5-17.5); LYMPHOCYTES # (AUTO) 1.1 K/uL (0.8-4.8); MEAN CORPUSCULAR HEMOGLOBIN 29 PG (26.0-33.0); MEAN CORPUSCULAR HGB CONC 34 g/dl (31.0-36.0); MEAN CORPUSCULAR VOLUME 86 fL (80-96); MONOCYTES # (AUTO) 0.3 K/uL (0.1-1.30); MONOCYTES % (AUTO) 6.1 % (2.0-12.0); NEUTROPHILS # (AUTO) 3.4 K/uL (1.8-8.9); NEUTROPHILS % (AUTO) 61.5 % (43.0-81.0); PLATELET COUNT (AUTO) 186 K/uL (150-450); RED BLOOD CELL COUNT(AUTO) 4.37 MIL/uL (4.5-6.0); WHITE BLOOD COUNT (AUTO) 5.4 K/uL (4.3-11.0)
[2023-11-11 06:50] LABS: BILIRUBIN,TOTAL 0.4 mg/dL (0.2-1.0); CREATININE 0.7 mg/dL (0.6-1.3); MAGNESIUM 2.1 mg/dL (1.8-2.4); PHOSPHORUS 3.6 mg/dL (2.5-4.9); POTASSIUM 4.8 mmol/L (3.5-5.1); TOTAL PROTEIN, SERUM 6.8 g/dL (6.4-8.2)
[2023-11-11 08:00] VITALS: BP 124/73; TEMP 97.5; O2SAT 97
[2023-11-11] MEDS ORDERED: CHOL100062 PO (08:38)
[2023-11-11] MEDS: DOCUSATE SODIUM LIQ 100 MG/10 ML UDC PO SCH (09:17)
[2023-11-11] MEDS: POLYETHYLENE GLYCOL 3350 17 GM POWD.PACK PO SCH (09:17)
[2023-11-11] MEDS: HEPARIN SODIUM, PORCINE 5000 UNITS/1 ML VIAL SQ SCH (09:20)
[2023-11-11] MEDS: ASPIRIN 81 MG TAB.CHEW PO SCH (09:21)
[2023-11-11] MEDS: LISINOPRIL (10MG) 10 MG TABLET PO SCH (09:21)
[2023-11-11] MEDS: SODIUM CHLORIDE 1000 MG TABLET PO SCH (09:22)
[2023-11-11] MEDS: INSULIN REGULAR, HUMAN 100 UNIT/ML 3 ML VIAL SQ PRN (12:22)
[2023-11-11 20:26] VITALS: BP 119/73; TEMP 98.6; O2SAT 96
[2023-11-11] MEDS: ATORVASTATIN 10 MG TABLET PO SCH (21:26)
[2023-11-12 07:30] VITALS: BP 119/77; TEMP 98.2; O2SAT 93
[2023-11-12 08:35] VITALS: BP 122/65; TEMP 98.8; O2SAT 92
[2023-11-12 16:00] VITALS: BP 96/81; TEMP 99; O2SAT 93
[2023-11-12] MEDS: GLUCERNA SHAKE 237 ML CAN PO SCH (17:25)
[2023-11-13 08:00] VITALS: BP 117/71; TEMP 97.7; O2SAT 94
[2023-11-13 16:00] VITALS: BP 111/73; TEMP 97.9; O2SAT 95
[2023-11-13 20:00] VITALS: BP 106/61; TEMP 98.8; O2SAT 94
[2023-11-14] MEDS ORDERED: IV NS 0.9% 1,000 ML IV PRN (07:31)
[2023-11-14 08:59] VITALS: BP 134/74; TEMP 97.5; O2SAT 97
== END 2023-11-14 10:50 | DRG 640 ==
LOC: ER 20:51 → MED 11-11 00:16
PROVIDERS: ADMIT Internal Medicine; ATTEND Internal Medicine
DX: E86.0 Dehydration (principal); E43 Unspecified severe protein-calorie malnutrition; G93.41 Metabolic encephalopathy; E22.2 Syndrome of inappropriate secretion of antidiuretic hormone; R64 Cachexia; R62.7 Adult failure to thrive; Z79.84 Long term (current) use of oral hypoglycemic drugs; E11.9 Type 2 diabetes mellitus without complications; D63.8 Anemia in other chronic diseases classified elsewhere; Z68.24 Body mass index [BMI] 24.0-24.9, adult; F03.90 Unspecified dementia, unspecified severity, without behavioral disturbance, psychotic disturbance, mood disturbance, and anxiety; I10 Essential (primary) hypertension; E78.5 Hyperlipidemia, unspecified; Z79.82 Long term (current) use of aspirin; Z79.899 Other long term (current) drug therapy; E88.09 Other disorders of plasma-protein metabolism, not elsewhere classified
CPT/HCPCS: 36415; 71045-TC; 80048-TC; 80053-TC; 80076-TC; 82962-TC; 83690-TC; 83735-TC; 84100-TC; 84484-TC; 85025-TC; 85730-TC; 86706; 87081-TC; A4223; G0378; J1644; J1815; J7030